=== PATIENT | female | born 1995 | race Caucasian/White ===

== ENCOUNTER 2017-01-06 15:30 | Outpatient (RCR) | payer BC ==
[~2017-01-06 15:30] MED LIST: MICROGESTIN FE1 TA1 PO; ZOLOFT 100MG100 MG PO
== END 2017-01-13 08:59 | disposition home or self-care (01) ==
LOC: WSPT 15:30
DX: S32.03 Fracture of third lumbar vertebra (principal); Z98.1 Arthrodesis status

== ENCOUNTER 2017-12-10 06:57 | Emergency (ER) | payer BC ==
[~2017-12-10] VITALS: Ht 180.3 cm; Wt 56.8 kg
[2017-12-10 07:07] VITALS: TEMP 97.5
[2017-12-10 07:14] LABS: ARTERIAL BLD GAS O2 SATURATION 93.8 % (92-100); ARTERIAL BLD GAS TCO2 CT 26.4; ARTERIAL BLOOD GAS BASE EXCESS -4.2 (-2-2); ARTERIAL BLOOD GAS HCO3 24.5 meq/L (22-26); ARTERIAL BLOOD GAS PCO2 61.6 mmHg (35-45); ARTERIAL BLOOD GAS pH 7.22 (7.35-7.45)
[2017-12-10 07:15] LABS: BASO # 0.1 (0.0-0.2); BASO % 0.9 % (0.0-2.0); EOS # 0.1 (0.0-0.7); EOS % 1.5 % (0-4.0); GRAN # 3.1 (1.4-6.5); GRAN % 44.8 % (42.2-75.2); HEMATOCRIT 39.8 % (37.0-47.0); HEMOGLOBIN 13.5 g/dl (12.5-16.0); LYMPH % 44.3 % (20.0-51.0); MEAN CELL VOLUME 102 fl (80.0-100.0); MEAN CORPUSCULAR HEMOGLOBIN 35 pg (27.0-31.0); MEAN CORPUSCULAR HGB CONC 34 g/dl (33.0-37.0); MEAN PLATELET VOLUME 10.2 fl (7.4-10.4); MONO # 0.6 (0.1-0.6); MONO % 8.2 % (1.7-9.3); PLATELET COUNT 255 K/mm3 (130-400); RED BLOOD COUNT 3.91 M/mm3 (4.10-5.30); REDCELL DISTRIBUTION WIDTH-CV 12.4 % (11.5-14.5)
[2017-12-10 07:17] LABS: COLLECTION METHOD CATHETER
[2017-12-10 07:25] LABS: PH 5 (5-8); SQUAMOUS EPITHELIAL 0-2 /hpf; URINE APPEARANCE Clear; URINE BACTERIA None Seen /hpf; URINE BILIRUBIN Negative (NEGATIVE); URINE BLOOD Negative (NEGATIVE); URINE COLOR Straw; URINE GLUCOSE Negative (NEGATIVE); URINE KETONE Negative (NEGATIVE); URINE LEUKOCYTE ESTERASE Negative (NEGATIVE); URINE NITRATE Negative (NEGATIVE); URINE PROTEIN(semi-quant) Negative (NEGATIVE); URINE RBC 0-2 /hpf; URINE UROBILINOGEN Negative (NEGATIVE)
[2017-12-10 07:47] LABS: ACETAMINOPHEN 21 ug/mL (10-30); ALANINE AMINOTRANSFERASE 27 U/L (9-52); ALBUMIN 5.2 gm/dL (3.5-5.0); ALCOHOL(ethanol),MEDICAL 231 mg/dL; ALKALINE PHOSPHATASE 64 U/L (50-136); ANION GAP 13 mmol/L (7-16); AST,SGOT 31 U/L (15-37); BILIRUBIN,TOTAL 0.4 mg/dL (0.0-1.0); BLOOD UREA NITROGEN 10 mg/dL (7-17); CALCIUM 9.3 mg/dL (8.4-10.2); CARBON DIOXIDE 25 mmol/L (22-30); CHLORIDE 106 mmol/L (98-107); CREATININE, serum 0.76 mg/dL (0.52-1.25); GLUCOSE 88 mg/dL (74-106); POTASSIUM 4.4 mmol/L (3.4-5.0); SALICYLATE < 1.0 mg/dL; SODIUM 144 mmol/L (137-145); TOTAL PROTEIN 8.3 gm/dL (6.4-8.2)
[2017-12-10 07:55] LABS: TRICYCLIC ANTIDEPRESS URINE NEGATIVE
[2017-12-10 08:09] LABS: ARTERIAL BLOOD GAS BASE EXCESS -2.5 (-2-2); ARTERIAL BLOOD GAS HCO3 21.9 meq/L (22-26); ARTERIAL BLOOD GAS PCO2 36.7 mmHg (35-45); ARTERIAL BLOOD GAS pH 7.39 (7.35-7.45)
[2017-12-10 08:10] LABS: ARTERIAL BLOOD GAS PO2 313.8 mmHg (80-100)
[2017-12-10 10:35] VITALS: BP 99/65; PULSE 66
== END 2017-12-10 10:30 | disposition short-term general hospital (02) ==
LOC: COL.ER 06:57
PROVIDERS: Emergency Medicine
DX: T50.902A Poisoning by unspecified drugs, medicaments and biological substances, intentional self-harm, initial encounter (principal); F10.129 Alcohol abuse with intoxication, unspecified; Y90.7 Blood alcohol level of 200-239 mg/100 ml; F41.9 Anxiety disorder, unspecified; F32.9 Major depressive disorder, single episode, unspecified
CPT/HCPCS: J0330; J2250; J2310; J2405; J7030

== ENCOUNTER 2018-03-12 18:54 | Emergency (ER) | payer BC ==
[~2018-03-12] VITALS: Ht 177.8 cm; Wt 57.7 kg
[2018-03-12 19:02] VITALS: BP 127/66; TEMP 97.4
[2018-03-12] MEDS ORDERED: PRENATAL MVI (19:13)
[2018-03-12 19:38] LABS: COLLECTION METHOD CLEAN CATCH
[2018-03-12 19:43] LABS: BASO # 0.1 (0.0-0.2); BASO % 0.4 % (0.0-2.0); EOS # 0.1 (0.0-0.7); EOS % 0.6 % (0-4.0); GRAN # 7.9 (1.4-6.5); GRAN % 67.5 % (42.2-75.2); HEMATOCRIT 40.4 % (37.0-47.0); LYMPH # 2.2 (1.2-3.4); LYMPH % 18.5 % (20.0-51.0); MEAN CELL VOLUME 99 fl (80.0-100.0); MEAN CORPUSCULAR HEMOGLOBIN 34 pg (27.0-31.0); MEAN CORPUSCULAR HGB CONC 35 g/dl (33.0-37.0); MEAN PLATELET VOLUME 10.3 fl (7.4-10.4); MONO # 1.5 (0.1-0.6); MONO % 12.7 % (1.7-9.3); PLATELET COUNT 261 K/mm3 (130-400); RED BLOOD COUNT 4.07 M/mm3 (4.10-5.30); REDCELL DISTRIBUTION WIDTH-CV 12.2 % (11.5-14.5)
[2018-03-12 19:46] LABS: MUCOUS Present /lpf; PH 6 (5-8); URINE APPEARANCE Hazy; URINE BACTERIA Rare /hpf; URINE BILIRUBIN Negative (NEGATIVE); URINE BLOOD 2+ (NEGATIVE); URINE COLOR Yellow; URINE GLUCOSE Negative (NEGATIVE); URINE KETONE Trace (NEGATIVE); URINE LEUKOCYTE ESTERASE Negative (NEGATIVE); URINE NITRATE Negative (NEGATIVE); URINE PROTEIN(semi-quant) 3+ (NEGATIVE); URINE UROBILINOGEN Negative (NEGATIVE)
[2018-03-12 19:54] LABS: ALBUMIN 4.5 gm/dL (3.5-5.0); C-REACTIVE PROTEIN 2.1 mg/dL (0.0-0.9); CALCIUM 9.8 mg/dL (8.4-10.2); CREATININE, serum 1.07 mg/dL (0.52-1.25); POTASSIUM 3.5 mmol/L (3.4-5.0)
[2018-03-12] MEDS ORDERED: NORCO 325 MG-51 TAB PO (22:02)
[2018-03-12] MEDS ORDERED: CEPHALEXIN500 M1 PO (22:02)
[2018-03-12] MEDS ORDERED: ZOFRAN 4MG T4 MG/TAB PO (22:02)
[2018-03-12 22:15] VITALS: PULSE 91
== END 2018-03-12 22:17 | disposition home or self-care (01) ==
LOC: COL.ER 18:54
PROVIDERS: Emergency Medicine
DX: N12 Tubulo-interstitial nephritis, not specified as acute or chronic (principal); N39.0 Urinary tract infection, site not specified; F32.9 Major depressive disorder, single episode, unspecified
CPT/HCPCS: J0696; J2405; J3010; J7030; Q9967

== ENCOUNTER 2020-02-09 09:31 | Inpatient (IN) | payer BC ==
[~2020-02-09] VITALS: Ht 180.3 cm; Wt 75.9 kg
[2020-02-09] VITALS (14 sets, daily range): BP systolic 112–157; BP diastolic 58–89; PULSE 68–116; TEMP 98.2
[~2020-02-09 09:31] MED LIST changes: +CEPHALEXIN500 M1 PO; +NORCO 325 MG-51 TAB PO; +PRENATAL MVI; +ZOFRAN 4MG T4 MG/TAB PO
--- NOTE | 2020-02-09 19:00 | NUR ---
PT ARRIVED TO UNIT AMBUALTORY WITH SIGNIFICANT OTHER FOR SCHEDULED CYTOTEC INDUCTION. PT ORIENTED TO ROOM, CHANGED INTO GOWN, EFMX2 APPLIED, VS OBTAINED.
[2020-02-09 20:17] LABS: BASO % 0.3 % (0.0-2.0); EOS # 0.1 (0.0-0.7); EOS % 0.6 % (0-4.0); GRAN # 5.9 (1.4-6.5); GRAN % 66.9 % (42.2-75.2); HEMATOCRIT 29.8 % (37.0-47.0); LYMPH # 1.9 (1.2-3.4); LYMPH % 21.9 % (20.0-51.0); MEAN CELL VOLUME 100 fl (80.0-100.0); MEAN CORPUSCULAR HEMOGLOBIN 34 pg (27.0-31.0); MEAN CORPUSCULAR HGB CONC 34 g/dl (33.0-37.0); MEAN PLATELET VOLUME 10.5 fl (7.4-10.4); MONO # 0.8 (0.1-0.6); MONO % 9.2 % (1.7-9.3); PLATELET COUNT 272 K/mm3 (130-400); RED BLOOD COUNT 2.97 M/mm3 (4.10-5.30); REDCELL DISTRIBUTION WIDTH-CV 12.2 % (11.5-14.5)
--- NOTE | 2020-02-09 21:32 | NUR ---
BEGINNING TO FEEL UNCOMFORTABLE WITH CONTRACTIONS PT STATES
--- NOTE | 2020-02-09 22:00 | NUR ---
[facility] AFTER VOIDING, WILL REST- TV OFF . FOB AT BEDSIDE
--- NOTE | 2020-02-09 23:13 | NUR ---
UNCOMFORTABLE WITH CTXS IN LOWER ABD. WARM BLANKET GIVEN
[2020-02-10] VITALS (22 sets, daily range): BP systolic 117–152; BP diastolic 56–91; PULSE 67–112; TEMP 97.8–98.5
--- NOTE | 2020-02-10 04:05 | NUR ---
EFFECTIVELY PUSHES- DR CABALLERO HERE. KIRSTY SCRUB. BED APART FEET ON FOOT RESTS- AT 0408- DAD CUTS CORD, BABY ON MOMS ABDOMEN
[2020-02-11 07:15] VITALS: BP 129/74; PULSE 88; TEMP 97.8
[2020-02-11] MEDS ORDERED: IBU600 MG PO (09:28)
== END 2020-02-11 11:45 | disposition home or self-care (01) | DRG 807 ==
LOC: OB 09:31 → LDR 19:59 → OB 02-10 07:13
PROVIDERS: ADMIT Student in an Organized Health Care Education/Training Program
PROC: 10E0XZZ Delivery of Products of Conception, External Approach (ICD-10-PCS; principal; 2020-02-10)
PROC: 10907ZC Drainage of Amniotic Fluid, Therapeutic from Products of Conception, Via Natural or Artificial Opening (ICD-10-PCS; 2020-02-10)
PROC: 0UQMXZZ Repair Vulva, External Approach (ICD-10-PCS; 2020-02-10)
PROC: 3E033VJ Introduction of Other Hormone into Peripheral Vein, Percutaneous Approach (ICD-10-PCS; 2020-02-10)
DX: O99.344 Other mental disorders complicating childbirth (principal); Z37.0 Single live birth; F41.9 Anxiety disorder, unspecified; O70.0 First degree perineal laceration during delivery; O75.89 Other specified complications of labor and delivery; R03.0 Elevated blood-pressure reading, without diagnosis of hypertension; Z98.1 Arthrodesis status; Z3A.39 39 weeks gestation of pregnancy
CPT/HCPCS: J2405; J2590; J7120

== ENCOUNTER 2021-12-04 07:49 | Inpatient (IN) | payer SELFPAY ==
[~2021-12-04] VITALS: Ht 172.7 cm; Wt 71.8 kg
[2021-12-04] VITALS (26 sets, daily range): BP systolic 102–154; BP diastolic 63–97; PULSE 71–100; TEMP 97.5
[~2021-12-04 07:49] MED LIST changes: +IBU600 MG PO
--- NOTE | 2021-12-04 13:05 | NUR ---
1300 Pt ambulatory onto unit. changed into clean gown. FHR monitor/TOCO applied. Vital signs stable. Consents signed. 1335 IV started. LR ringers and pitocin started per protocol. Plan of care discussed. Pt verbalizes understanding.
[2021-12-04 14:05] LABS: BASO % 0.3 % (0.0-2.0); EOS % 0.3 % (0.0-4.0); GRAN # 5.5 K/mm3 (1.4-6.5); LYMPH # 2.8 K/mm3 (1.2-3.4); LYMPH % 30.7 % (20.0-51.0); MEAN CELL VOLUME 96 fl (80.0-100.0); MEAN CORPUSCULAR HGB CONC 34 g/dl (33.0-37.0); MEAN PLATELET VOLUME 10.6 fl (7.4-10.4); MONO # 0.7 K/mm3 (0.1-0.6); MONO % 7.2 % (1.7-9.3); PLATELET COUNT 297 K/mm3 (130-400); RED BLOOD COUNT 3.03 M/mm3 (4.10-5.30); REDCELL DISTRIBUTION WIDTH-CV 12.9 % (11.5-14.5)
[2021-12-04 14:13] LABS: HEMATOCRIT 29.1 % (37.0-47.0); HEMOGLOBIN 9.9 g/dl (12.5-16.0); MEAN CORPUSCULAR HEMOGLOBIN 33 pg (27-31)
--- NOTE | 2021-12-04 18:20 | NUR ---
1819 - This nurse to room for bedside report from Nirmala Davis RN, Pt visibly very uncomfortable. 1821 - This nurse to perform SVE, small crown visualized. Staff assist light activated. Pt encouraged to push. Additional staff to room along with Dr. Arias. 1822 - Spontaneous vaginal delivery of viable infant boy. Infant placed to mothers abdomen and stimulated by this nurse. Care of assumed to Vivienne Street RN. Cord clamped x [address] Arias and cut by FOB. Cord blood obtained. Pitocin off. Bed broke down and patient positioned into stirrups. 1826 - Spontaneous delivery of intact placenta. Pitocin restarted at 333 mL/hr. Fundal massage by Dr. Arias. Fundus down 3 from umbilicus. Perineum intact per Dr. Arias. Straight catheter by Dr. Arias. EBL [address] Arias. 1829 - Moderate amount of free flow bleeding with fundal massage. Verbal orders to give Methergine IM, see DEC. 1834 - Methergine given at this time in left thigh. Pericare provided. New chux beneath patient. Pt repositioned in bed for comfort. See physician delivery note.
[2021-12-05 00:45] VITALS: BP 116/72; PULSE 92; TEMP 98
[2021-12-05 04:58] VITALS: BP 122/79; PULSE 70; TEMP 98.1
[2021-12-05 06:33] LABS: MEAN CELL VOLUME 98 fl (80.0-100.0); MEAN CORPUSCULAR HGB CONC 33 g/dl (33.0-37.0); MEAN PLATELET VOLUME 10.4 fl (7.4-10.4); PLATELET COUNT 224 K/mm3 (130-400); RED BLOOD COUNT 2.56 M/mm3 (4.10-5.30); REDCELL DISTRIBUTION WIDTH-CV 12.8 % (11.5-14.5)
[2021-12-05 06:42] LABS: HEMATOCRIT 25.2 % (37.0-47.0); HEMOGLOBIN 8.3 g/dl (12.5-16.0); MEAN CORPUSCULAR HEMOGLOBIN 32 pg (27-31)
[2021-12-05 07:06] VITALS: BP 121/90; PULSE 90; TEMP 97.4
[2021-12-05] MEDS ORDERED: IBU800 M1 PO (12:16)
[2021-12-05 16:25] VITALS: BP 121/67; PULSE 82; TEMP 97.8
== END 2021-12-05 19:45 | disposition home or self-care (01) | DRG 806 ==
LOC: LDR 07:49 → OB 22:40
PROVIDERS: ADMIT Student in an Organized Health Care Education/Training Program
PROC: 10E0XZZ Delivery of Products of Conception, External Approach (ICD-10-PCS; principal; 2021-12-04)
PROC: 10907ZC Drainage of Amniotic Fluid, Therapeutic from Products of Conception, Via Natural or Artificial Opening (ICD-10-PCS; 2021-12-04)
PROC: 3E033VJ Introduction of Other Hormone into Peripheral Vein, Percutaneous Approach (ICD-10-PCS; 2021-12-04)
DX: O36.5930 Maternal care for other known or suspected poor fetal growth, third trimester, not applicable or unspecified (principal); O72.1 Other immediate postpartum hemorrhage; Z37.0 Single live birth; O62.3 Precipitate labor; O99.62 Diseases of the digestive system complicating childbirth; K59.09 Other constipation; O99.892 Other specified diseases and conditions complicating childbirth; M54.30 Sciatica, unspecified side; Z3A.38 38 weeks gestation of pregnancy; Z98.1 Arthrodesis status
CPT/HCPCS: J2210; J2405; J2590; J7120

== ENCOUNTER 2024-08-04 04:09 | Inpatient (IN) | payer OTHER ==
[2024-08-04] VITALS (20 sets, daily range): BP systolic 121–151; BP diastolic 73–96; PULSE 68–94; TEMP 97.3–98.1
[~2024-08-04] VITALS: Ht 177.8 cm; Wt 70.0 kg
[~2024-08-04 04:09] MED LIST changes: +IBU800 M1 PO
[2024-08-04] MEDS ORDERED: Penicillin G Potassium 5,000,000 UNITS in NS 100 ML IV ONE (04:45)
[2024-08-04] MEDS ORDERED: LR 1,000 ML IV PRN (04:45)
[2024-08-04] MEDS ORDERED: LR 1,000 ML IV SCH ×2 (04:45→05:30)
[2024-08-04] MEDS ORDERED: LR & Oxytocin 500 ML IV SCH (04:45)
[2024-08-04] MEDS ORDERED: ROPivacaine PF 0.2% 200 ML IV ONE (04:55)
[2024-08-04] MEDS ORDERED: Ondansetron 4 MG/2 ML VIAL IV PRN (05:30)
[2024-08-04] MEDS ORDERED: LR 500 ML IV PRN (05:30)
[2024-08-04] MEDS ORDERED: diphenhydrAMINE 25 MG CAP PO PRN (05:30)
[2024-08-04] MEDS ORDERED: ePHEDrine 50 MG/10 ML VIAL IV PRN (05:30)
[2024-08-04] MEDS ORDERED: diphenhydrAMINE 50 MG/ML 1 ML VIAL IV PRN (05:30)
[2024-08-04] MEDS ORDERED: Naloxone 0.4 MG/ML VIAL IV PRN ×2 (05:30→09:45)
[2024-08-04 06:00] LABS: BASO % 0.3 % (0.0-2.0); EOS # 0.1 K/mm3 (0.0-0.7); EOS % 0.5 % (0.0-4.0); GRAN # 10.5 K/mm3 (1.4-6.5); GRAN % 73.6 % (42.2-75.2); HEMOGLOBIN 11.2 g/dl (12.5-16.0); LYMPH # 2.7 K/mm3 (1.2-3.4); LYMPH % 19.1 % (20.0-51.0); MEAN CELL VOLUME 101 fl (80.0-100.0); MEAN CORPUSCULAR HEMOGLOBIN 35 pg (27-31); MEAN CORPUSCULAR HGB CONC 34 g/dl (33.0-37.0); MEAN PLATELET VOLUME 10.9 fl (7.4-10.4); MONO # 0.9 K/mm3 (0.1-0.6); MONO % 5.9 % (1.7-9.3); PLATELET COUNT 241 K/mm3 (130-400); RED BLOOD COUNT 3.24 M/mm3 (4.10-5.30); REDCELL DISTRIBUTION WIDTH-CV 12.6 % (11.5-14.5)
[2024-08-04 06:01] LABS: HEMATOCRIT 32.7 % (37.0-47.0)
--- NOTE | 2024-08-04 07:11 | NUR ---
This RN assumes care of pt at 0630. Pt resting comfortably, epidural in place. Chaudhary catheter in place. LR running via gravity drip. FHR cat 1, contractions every 3-4 minutes. BP and temp taken at this time. Dr. Layton on unit and updated to pt blood pressures since admission and current reading, along with pt desire to have water broken for augmentation of labor if needed. Pt repositioned WL in sitting position. Denies needs at this time.
[2024-08-04] MEDS ORDERED: Penicillin G Potassium 2,500,000 UNITS in NS 100 ML IV SCH (08:36)
--- NOTE | 2024-08-04 08:45 | NUR ---
Dr. Layton to bedside at 0835. Plan of care discussed with pt, pt agrees. SVE per provider /-2, AROM at 0839, clear fluid noted. Pt repositioned for comfort.
[2024-08-04] MEDS ORDERED: oxyCODONE 5 MG TAB PO PRN (09:45)
[2024-08-04] MEDS ORDERED: Tdap Vaccine 0.5 ML SYRINGE IM SCH (09:45)
[2024-08-04] MEDS ORDERED: Mag/Al Hydrox/Simeth Susp 30 ML CUP PO PRN (09:45)
[2024-08-04] MEDS ORDERED: Loratadine 10 MG TAB PO PRN (09:45)
[2024-08-04] MEDS ORDERED: Witch Hazel 50% Pads Bulk TUB TP PRN (09:45)
[2024-08-04] MEDS ORDERED: Ibuprofen 600 MG TAB PO SCH (09:45)
[2024-08-04] MEDS ORDERED: Phenylephrine/Mineral Oil/Petrolatum 57 GM TUBE RC PRN (09:45)
[2024-08-04] MEDS ORDERED: Acetaminophen 500 MG TAB PO SCH (09:45)
[2024-08-04] MEDS ORDERED: Measles/Mumps/Rubella Virus Vaccine Live w Diluent 0.5 ML VIAL SQ SCH (09:45)
[2024-08-04] MEDS ORDERED: Magnes Hydrox (MOM) 80 MG/ML 30 ML CUP PO PRN (09:45)
--- NOTE | 2024-08-04 10:32 | NUR ---
0850 - Pitocin started per plan of care discussion. 0915 - Pt calls out asking to start pushing. This RN to bedside, SVE with permission /+2. Dr. Layton notified, charge and nursery RNs notified and to bedside. Pitocin off at this time. Chaudhary removed, 150ml urine noted. 0923 - Dr. Oconnor on unit, requested to bedside as pt wants to push. Pt repositioned for delivery, bed broken down. 0931 - Pt pushes with contraction, viable female delivered spontaneously, placed on mother's abdomen where dried and stimulated. Care of infant transferred to Kati RN of nursery. 0936 - Placenta delivered spontaneously by Dr. Oconnor, perineum intact per physician. Pitocin started per protocol. Pericare provided, new bed pad and ice pack placed, pt repositioned for comfort.
--- NOTE | 2024-08-04 12:25 | NUR ---
1200 - Pt able to lift and hold left leg, right leg still very heavy. Pt wishes to get up to bathroom and move to room. Pt up to bathroom with 2 assist and phuong steady. Pt unable to void at this time. Pericare provided, clean panties and pad placed, new gown provided. Pt transferred to and taken to room via wheelchair. Pt then 2 assisted into bed. Discussed with pt need to call for assist to bathroom for next attempt, pt verbalized understanding and agreement, denies needs at this time.
--- NOTE | 2024-08-04 15:40 | NUR ---
1515 - Pt requests to get up to bathroom, states she feels like she has to go and thinks she is leaking into bed. Pt's right leg still very heavy, pt states she is unable to feel the floor with her foot. Pt assisted into bathroom by 2 family members and this RN, remains unable to void at this time. Gown, bed pad, panties and pad changed as saturated in blood with strong smell of urine. Pt assisted back to bed via phuong steady. Bladder scanner obtained, scan result of >937ml. Straight cath performed with pt in bed, 1200ml urine obtained. Pt states she feels much better following cath. Pt again asked to call for assist if she feels need to void again, pt verbalizes understanding.
[2024-08-04] MEDS ORDERED: Sennosides/Docusate 8.6-50 MG TAB PO SCH (17:00)
--- NOTE | 2024-08-04 18:45 | NUR ---
DR PAYTON NOTIFIED PT PAST A BASEBALL SIZE CLOT, WEIGHING 135 GRAMS. FUNDUS IS FIRM AND NO OTHER BLOOD CAME OUT UPON FUNDAL MASSAGE. PT STATES SHE WAS CRAMPING ALOT AND THEN THE CLOT CAME OUT. THE CRAMPING HAS STOPPED. PT STATES SHE NEEDS TP VOID. ASSISTED PT TO BR AFTER INSPECTING FOR NO MORE BLEEDING, HER LEGS ARE BACK TO NORMAL NOW AFTER THE EPIDURAL HAS WORN OFF. PT PERFORMED HER OWN PERICARE AND CHANGED PAD. AMB BACK TO BED AND THEN I INSPECTED FOR ANY MORE BLEEDING. THERE WAS NO MORE BLEEDING. ORDERS NOTED FOR H&H IN AM, METHERGINE .2MG PO Q 8 HRS FOR THREE DOSES THEN DC IT.
[2024-08-04] MEDS ORDERED: Methylergonovine 0.2 MG TAB PO SCH (19:00)
[2024-08-04] MEDS ORDERED: traZODone 50 MG TAB PO PRN (21:00)
--- NOTE | 2024-08-04 22:00 | NUR ---
PT DECLINED ANY MORTIN OR TYLENOL STATING SHE DOES NOT NEED IT. SHE IS NOT CRAMPING AND PREFERS NOT TO TAKE IT. PT IS GOING TO SLEEP, BABY TO THE NURSERY.
[2024-08-05 02:10] VITALS: BP 128/72; PULSE 77; TEMP 98.4
--- NOTE | 2024-08-05 05:08 | NUR ---
PT AMB TO BR AND VOIDED. PT UP TO SHOWER. BLEEDING IS VERY MINIMAL AT THIS TIME.
[2024-08-05 05:10] LABS: HEMOGLOBIN 11.4 g/dl (12.5-16.0)
[2024-08-05 09:06] VITALS: BP 112/72; PULSE 69; TEMP 97.6
[2024-08-05] MEDS ORDERED: IBU600 MG PO (10:03)
== END 2024-08-05 11:04 | disposition home or self-care (01) | DRG 807 ==
LOC: LDRO 04:09 → LDR 04:54 → OB 12:25
PROVIDERS: Obstetrics & Gynecology; ADMIT Student in an Organized Health Care Education/Training Program
PROC: 10E0XZZ Delivery of Products of Conception, External Approach (ICD-10-PCS; principal; 2024-08-04)
DX: O99.824 Streptococcus B carrier state complicating childbirth (principal); Z37.0 Single live birth; Z3A.38 38 weeks gestation of pregnancy; O99.344 Other mental disorders complicating childbirth; F41.9 Anxiety disorder, unspecified; F32.A Depression, unspecified; Z23 Encounter for immunization
CPT/HCPCS: J2405; J2540; J2590; J2795; J7120